=== PATIENT | male | born 1945 ===

== ENCOUNTER 2018-01-30 12:17 | Inpatient (IN) | payer OTHER, MEDICARE ==
[~2018-01-30] VITALS: Ht 175.3 cm; Wt 91.2 kg
[~2018-01-30 12:17] MED LIST changes: -AMLO-111 PO; -ASPI-1471 PO; -DIA5 PO; -DOCU240C84 PO; -LOR5/325 PO; -NAPR220C12 PO
[2018-01-30] MEDS ORDERED: DIPHTH/TETANUS/ACEL. PERTUSSIS IM ONE (12:35)
[2018-01-30] MEDS ORDERED: NS(*) 0.9% 1000 ML BAG 1,000 ML IV ONE (12:35)
[2018-01-30] MEDS ORDERED: MORPHINE 4 MG/ML SDV IVP ONE (12:35)
[2018-01-30] MEDS ORDERED: AMLO-96 PO (12:43)
--- NOTE | 2018-01-30 12:44 | ER Report ---
History and Physical Time Seen By MD: 12:35 Hx. of Stated Complaint: PT WAS WORKING AT THE [employer]. FELL OFF LADDER FROM APPROX 10 FT. COMPLAINING OF LUMBAR PAIN. PT HAS ABRASION TO LEFT ELBOW. PT ALSO HAVING PAIN TO LEFT LEG, WITH TINGLING. PT IN C COLLAR HPI/ROS CHIEF COMPLAINT: Fall from ladder HISTORY OF PRESENT ILLNESS: This is a 73-year-old male who presents to the emergency department via EMS for a fall from a ladder. Patient was at work today stepped off the ladder onto the roof of a building the foot slipped and he had a foot caught in the rung of the ladder slid down the ladder with atraumatic fall to the ground entangled in the ladder. No loss of consciousness however he does have C-spine tenderness lower thoracic and lumbar tenderness. No loss of bowel or bladder. Left hip and pelvic pain. REVIEW OF SYSTEMS: Constitutional: No fever, no chills. Eyes: No discharge. ENT: No sore throat. Cardiovascular: No chest pain, no palpitations. Respiratory: No cough, no shortness of breath. Gastrointestinal: No abdominal pain, no vomiting. Genitourinary: No hematuria. Musculoskeletal: As above. Skin: As above. Neurological: No headache. Allergies: Coded Allergies: No Known Drug Allergies (Verified , 08/06/15) Home Meds Reported Medications Naproxen Sodium (ALEVE) 220 Mg Capsule, 440 MG PO HS, CAPSULE 01/30/18 Aspirin (ASPIR 81) 81 Mg Tablet.dr, 81 MG PO HS, TAB 01/30/18 Amlodipine Besylate (AMLODIPINE BESYLATE) 5 Mg Tablet, 5 PO HS, TAB 01/30/18 Glucosa Lou 2KCL/Chondroitin Lou (Glucosamine & Chondroitin Cap) 1 Cap Capsule, 1 CAP PO DAILY, 0 Refills 05/10/10 Fish Oil/[place]-3 Fatty Acids (Fish Oil 1,200 Mg Softgel) 1 Cap Capsule, 1 CAP PO BID, 0 Refills 05/10/10 Levothyroxine Sodium (Levothyroxine Sodium) 50 Mcg Tablet, 50 MCG PO DAILY, 0 Refills 05/10/10 Benazepril Hcl 20 MG TAB (Benazepril Hcl 20 MG TAB) 20 Mg Tablet, 20 MG PO HS, 0 Refills 05/10/10 Past Medical/Surgical History The patient has a past medical and surgical history of hypertension, arthritis, toe fracture, wears glasses, hard of hearing, hearing aids, parotidectomy, carpal tunnel release. Reviewed Nurses Notes: Yes Constitutional Vital Sign - Last 24 Hours 01/30/18 01/30/18 01/30/18 01/30/18 12:30 12:34 12:45 12:47 Temp 98.3 Pulse 93 86 Resp 18 10 B/P (MAP) 132/92 132/92 (105) 127/87 (100) Pulse Ox 91 93 O2 Delivery Nasal Cannula 01/30/18 01/30/18 01/30/18 01/30/18 13:00 13:02 13:15 13:16 Pulse 87 Resp 22 B/P (MAP) 119/75 (90) 115/80 (92) Pulse Ox 92 O2 Flow Rate 2.0 01/30/18 01/30/18 01/30/18 01/30/18 13:17 13:30 14:00 14:05 Pulse 89 75 Resp 23 12 B/P (MAP) 112/92 (99) 132/80 (97) Pulse Ox 95 01/30/18 01/30/18 01/30/18 01/30/18 14:15 14:20 14:30 14:45 Pulse 73 ??? 68 Resp 24 7 B/P (MAP) 127/91 (103) ???/??? (1665) 131/91 (104) Pulse Ox 95 94 01/30/18 01/30/18 01/30/18 01/30/18 14:45 14:50 15:00 15:03 Pulse 73 73 Resp 18 16 B/P (MAP) 131/91 (104) 77/59 (65) 79/65 (70) Pulse Ox 95 01/30/18 01/30/18 01/30/18 01/30/18 15:06 15:10 15:15 15:20 Pulse ??? Resp 15 B/P (MAP) 100/64 (76) 118/60 (79) 116/70 (85) 126/70 (88) Pulse Ox 89 01/30/18 01/30/18 01/30/18 01/30/18 15:25 15:30 15:35 15:40 Pulse 61 Resp 11 B/P (MAP) 125/76 (92) 128/71 (90) 121/77 (92) 133/76 (95) Pulse Ox 95 01/30/18 01/30/18 01/30/18 01/30/18 15:45 15:50 15:55 16:00 Pulse 62 ??? Resp 7 11 B/P (MAP) 135/78 (97) 132/77 (95) 133/77 (95) 129/79 (96) Pulse Ox 97 95 01/30/18 01/30/18 01/30/18 01/30/18 16:05 16:10 16:15 16:20 Pulse 70 Resp 9 B/P (MAP) 130/78 (95) 133/82 (99) 141/83 (102) 138/80 (99) Pulse Ox 94 01/30/18 01/30/18 01/30/18 01/30/18 16:25 16:30 16:35 16:40 Pulse 69 Resp 9 B/P (MAP) 141/79 (99) 140/83 (102) 142/86 (104) 141/80 (100) Pulse Ox 95 01/30/18 01/30/18 01/30/18 01/30/18 16:45 16:50 16:55 17:00 B/P (MAP) 141/80 (100) 136/83 (100) 145/82 (103) 141/82 (101) 01/30/18 01/30/18 01/30/18 01/30/18 17:05 17:10 17:15 17:20 Pulse ??? Resp 14 B/P (MAP) 144/83 (103) 137/85 (102) 135/85 (102) 151/101 (118) Pulse Ox 95 01/30/18 01/30/18 17:25 17:40 B/P (MAP) 132/95 (107) 141/88 (105) Physical Exam General Appearance: The patient is alert, has no immediate need for airway protection and no signs of toxicity, arrives in c-collar. Eyes: Pupils equal and round no pallor or injection. Pupils 4 mm reactive. EOMs intact. No nystagmus. ENT, Mouth: Mucous membranes are moist. No blood. Respiratory: There are no retractions, lungs are clear to auscultation. Cardiovascular: Regular rate and rhythm, no murmurs, clicks or rubs. Gastrointestinal: Abdomen is soft and non tender, no masses, bowel sounds norm al. No retroperitoneal bruising. Neurological: Alert and oriented 4. Moving all tremors. Following all commands. No focal neuro deficits. There is 2-12 intact. GCS 15. Skin: Abrasion to the left elbow. Musculoskeletal and Extremities: C-spine tenderness with palpation, no crepitus or deformities. Pain to the lower thoracic and lumbar region no deformities or crepitus identified. No contusions. Pain to the left pelvis and femur and left knee, no hematomas, deformities or crepitus identified. are nontender, nonswollen and have full range of motion. DIFFERENTIAL DIAGNOSIS: After history and physical exam differential diagnosis was considered for cervical spine fracture, subdural bleed, compression fracture, retroperitoneal bleed. Medical Decision Making Data Points Result Diagram: 01/30/18 1217 01/30/18 1217 Laboratory Hematology Test 01/30/18 12:17 01/30/18 15:00 01/30/18 19:20 Red Blood Count 5.30 M/uL (4.00-5.60) Mean Corpuscular Volume 89.4 fL (80.0-96.0) Mean Corpuscular Hemoglobin 31.1 pg (26.0-33.0) Mean Corpuscular Hemoglobin Concent 34.8 g/dL (32.0-36.0) Red Cell Distribution Width 13.7 % (11.5-14.5) Mean Platelet Volume 8.8 fL (7.2-11.1) Neutrophils (%) (Auto) 65.1 % (39.4-72.5) Lymphocytes (%) (Auto) 23.2 % (17.6-49.6) Monocytes (%) (Auto) 8.8 % (4.1-12.4) Eosinophils (%) (Auto) 1.8 % (0.4-6.7) Basophils (%) (Auto) 1.1 % (0.3-1.4) Nucleated RBC Relative Count (auto) 0.0 /100WBC Neutrophils # (Auto) 4.5 K/uL (2.0-7.4) Lymphocytes # (Auto) 1.6 K/uL (1.3-3.6) Monocytes # (Auto) 0.6 K/uL (0.3-1.0) Eosinophils # (Auto) 0.1 K/uL (0.0-0.5) Basophils # (Auto) 0.1 K/uL (0.0-0.1) Nucleated RBC Absolute Count (auto) 0.00 K/uL Sodium Level 141 mmol/L (137-145) Potassium Level 3.6 mmol/L (3.5-5.0) Chloride Level 104 mmol/L (98-107) Carbon Dioxide Level 24 mmol/L (22-30) Blood Urea Nitrogen 21 mg/dl (9-21) Creatinine 1.10 mg/dl (0.66-1.25) Glomerular Filtration Rate Calc > 60.0 Random Glucose 126 mg/dl (75-110) Calcium Level 9.4 mg/dl (8.4-10.2) Total Bilirubin 1.0 mg/dl (0.2-1.3) Aspartate Amino Transf (AST/SGOT) 35 U/L (0-35) Alanine Aminotransferase (ALT/SGPT) 31 U/L (0-56) Alkaline Phosphatase 60 U/L (0-126) Total Protein 7.6 g/dl (6.3-8.2) Albumin 4.8 g/dl (3.5-5.0) Urine Color Yellow Urine Clarity Clear Urine pH 6.0 pH (4.8-9.5) Urine Specific [place] 1.010 Urine Protein Trace mg/dL (NEGATIVE) Urine Glucose (UA) Negative mg/dL (NEGATIVE) Urine Ketones Negative mg/dL (NEGATIVE) Urine Blood Negative (NEGATIVE) Urine Nitrite Negative (NEGATIVE) Urine Bilirubin Negative (NEGATIVE) Urine Urobilinogen 0.2 mg/dL (0.2-1.9) Urine Leukocyte Esterase Negative (NEGATIVE) Urine RBC <1 /HPF (0-2/HPF) Urine WBC 1 /HPF (0-5/HPF) Urine Squamous Epithelial Cells None /LPF (</=FEW) Urine Bacteria Negative /HPF (NONE-FEW) Urine Hyaline Casts Few /LPF (NONE-FEW) Urine Mucus Few /HPF (NONE-FEW) Troponin I < 0.012 ng/ml Chemistry Test 01/30/18 12:17 01/30/18 15:00 01/30/18 19:20 White Blood Count 6.9 k/uL (4.5-11.0) Red Blood Count 5.30 M/uL (4.00-5.60) Hemoglobin 16.5 g/dL (14.0-18.0) Hematocrit 47.4 % (42.0-52.0) Mean Corpuscular Volume 89.4 fL (80.0-96.0) Mean Corpuscular Hemoglobin 31.1 pg (26.0-33.0) Mean Corpuscular Hemoglobin Concent 34.8 g/dL (32.0-36.0) Red Cell Distribution Width 13.7 % (11.5-14.5) Platelet Count 300 K/uL (150-450) Mean Platelet Volume 8.8 fL (7.2-11.1) Neutrophils (%) (Auto) 65.1 % (39.4-72.5) Lymphocytes (%) (Auto) 23.2 % (17.6-49.6) Monocytes (%) (Auto) 8.8 % (4.1-12.4) Eosinophils (%) (Auto) 1.8 % (0.4-6.7) Basophils (%) (Auto) 1.1 % (0.3-1.4) Nucleated RBC Relative Count (auto) 0.0 /100WBC Neutrophils # (Auto) 4.5 K/uL (2.0-7.4) Lymphocytes # (Auto) 1.6 K/uL (1.3-3.6) Monocytes # (Auto) 0.6 K/uL (0.3-1.0) Eosinophils # (Auto) 0.1 K/uL (0.0-0.5) Basophils # (Auto) 0.1 K/uL (0.0-0.1) Nucleated RBC Absolute Count (auto) 0.00 K/uL Glomerular Filtration Rate Calc > 60.0 Calcium Level 9.4 mg/dl (8.4-10.2) Total Bilirubin 1.0 mg/dl (0.2-1.3) Aspartate Amino Transf (AST/SGOT) 35 U/L (0-35) Alanine Aminotransferase (ALT/SGPT) 31 U/L (0-56) Alkaline Phosphatase 60 U/L (0-126) Total Protein 7.6 g/dl (6.3-8.2) Albumin 4.8 g/dl (3.5-5.0) Urine Color Yellow Urine Clarity Clear Urine pH 6.0 pH (4.8-9.5) Urine Specific [place] 1.010 Urine Protein Trace mg/dL (NEGATIVE) Urine Glucose (UA) Negative mg/dL (NEGATIVE) Urine Ketones Negative mg/dL (NEGATIVE) Urine Blood Negative (NEGATIVE) Urine Nitrite Negative (NEGATIVE) Urine Bilirubin Negative (NEGATIVE) Urine Urobilinogen 0.2 mg/dL (0.2-1.9) Urine Leukocyte Esterase Negative (NEGATIVE) Urine RBC <1 /HPF (0-2/HPF) Urine WBC 1 /HPF (0-5/HPF) Urine Squamous Epithelial Cells None /LPF (</=FEW) Urine Bacteria Negative /HPF (NONE-FEW) Urine Hyaline Casts Few /LPF (NONE-FEW) Urine Mucus Few /HPF (NONE-FEW) Troponin I < 0.012 ng/ml Urinalysis Test 01/30/18 15:00 Urine Color Yellow Urine Clarity Clear Urine pH 6.0 pH (4.8-9.5) Urine Specific [place] 1.010 Urine Protein Trace mg/dL (NEGATIVE) Urine Glucose (UA) Negative mg/dL (NEGATIVE) Urine Ketones Negative mg/dL (NEGATIVE) Urine Blood Negative (NEGATIVE) Urine Nitrite Negative (NEGATIVE) Urine Bilirubin Negative (NEGATIVE) Urine Urobilinogen 0.2 mg/dL (0.2-1.9) Urine Leukocyte Esterase Negative (NEGATIVE) Urine RBC <1 /HPF (0-2/HPF) Urine WBC 1 /HPF (0-5/HPF) Urine Squamous Epithelial Cells None /LPF (</=FEW) Urine Bacteria Negative /HPF (NONE-FEW) Urine Hyaline Casts Few /LPF (NONE-FEW) Urine Mucus Few /HPF (NONE-FEW) EKG/Imaging EKG Interpretation 12 lead EKG: EKG 1507. Rhythm: Sinus bradycardia, ventricular rate 55 bpm. [place]: normal QRS: normal ST segments: No ST depression or elevation identified. No ectopy or blocks identified. 12 lead EKG: Repeat EKG Rhythm: Normal sinus rhythm, ventricular rate 63 bpm. [place]: normal QRS: normal ST segments: No ST depression or elevation identified. Imaging KNEE 4 VIEW LEFT, FEMUR LEFT Indication: fall, pain Comparison: None. Findings: Left knee radiograph: The distal femur, proximal tibia and fibula, and patella are intact. There is no effusion. Small ossified fragment in the knee joint are seen consistent with loose bodies. Left femur radiograph: There is no oblique lucency in the distal third of the femur, seen only on the AP image. Proximal portions of the femur demonstrate normal mineralization. IMPRESSION: 1. Possible subtle fracture distal third of the femur. 2. Negative left knee radiograph. Recommend CT left femur without contrast to evaluate for fracture. This was called by Dr. Hill to NICK MARTINS on 01/30/2018 2:05 PM Report Dictated By: Titus Hill at 01/30/2018 2:05 PM Report E-Signed By: Titus Hill at 01/30/2018 2:10 PM [email or web address] KNEE 4 VIEW LEFT, FEMUR LEFT Indication: fall, pain Comparison: None. Findings: Left knee radiograph: The distal femur, proximal tibia and fibula, and patella are intact. There is no effusion. Small ossified fragment in the knee joint are seen consistent with loose bodies. Left femur radiograph: There is no oblique lucency in the distal third of the femur, seen only on the AP image. Proximal portions of the femur demonstrate normal mineralization. IMPRESSION: 1. Possible subtle fracture distal third of the femur. 2. Negative left knee radiograph. Recommend CT left femur without contrast to evaluate for fracture. This was called by Dr. Hill to NICK MARTINS on 01/30/2018 2:05 PM Report Dictated By: Titus Hill at 01/30/2018 2:05 PM Report E-Signed By: Titus Hill at 01/30/2018 2:10 PM [facility] Head CT scan without contrast COMPARISONS: None ADDITIONAL PERTINENT HISTORY: Trauma TECHNIQUE: Multiple axial images were obtained from the skull base to the vertex without IV contrast. One of the following dose optimization techniques was utilized in the performance of this exam: Automated exposure control; adjustment of the mA and/or kV according to the patient's size; or use of an iterative reconstruction technique. Specific details can be referenced in the facility's radiology CT exam operational policy. FINDINGS: Midline shift: Negative Ventricles: Negative Brain parenchyma: Negative Extra-axial spaces: Negative Intracranial vasculature: Cavernous internal carotid artery calcifications. Otherwise negative Osseous structures: Negative Paranasal sinuses and mastoid air cells: Negative Surrounding soft tissues and orbits: Negative IMPRESSION: No evidence of acute intracranial pathology. Report Dictated By: Justin Wallace MD at 01/30/2018 2:24 PM Report E-Signed By: Justin Wallace MD at 01/30/2018 2:26 PM WSN:[id number] Location: [facility] [place] Patient: Dusty Fallon : 1945 Visit/Account:[id number] Date of Sevice: 01/30/2018 PELVIS Indication: fall from ladder, left hip and pelvic pain Comparison: None. Findings: Bones of the pelvis and the proximal right and left femur are intact. Right and left hip joint spaces demonstrate normal alignment. Soft tissues are unremarkable. There is a small ossification adjacent to the left ischial tuberosity, likely calcification at the insertion of the hamstring. IMPRESSION: No evidence of fracture or dislocation. Report Dictated By: Titus Hill at 01/30/2018 2:06 PM Report E-Signed By: Titus Hill at 01/30/2018 2:08 PM WSN:[id number] DDITIONAL PERTINENT HISTORY: Trauma TECHNIQUE: Multiple axial images were obtained from the skull base through the upper thoracic spine with coronal and sagittal reformatted images obtained without IV contrast. One of the following dose optimization techniques was utilized in the performance of this exam: Automated exposure control; adjustment of the mA and/or kV according to the patient's size; or use of an iterative reconstruction technique. Specific details can be referenced in the facility's radiology CT exam operational policy. FINDINGS. Postoperative changes: Patient status post previous anterior interbody fusion of C5-C7. Hardware is in good position without evidence of hardware fracture or loosening. Vertebral body heights and alignment: Negative. Vertebral bodies: Anteriorly and posteriorly directed osteophytes in the mid cervical spine. No bony fractures. Disc spaces: Solid bony fusion across the disc spaces at C5-C6 and C6-C7. Disc space narrowing at C4-C5. Cranial cervical junction: Negative. Cervical thoracic junction: Negative. Surrounding soft tissues: Negative. Lung apices: Negative. IMPRESSION: 1. Postoperative and spondylitic change as discussed above. 2. No acute appearing bony abnormalities. Report Dictated By: Justin Wallace MD at 01/30/2018 2:26 PM Report E-Signed By: Justin Wallace MD at 01/30/2018 2:30 PM WSN:[id number] TECHNIQUE: PELVIS W/O CONTRAST. Noncontrast axial CT imaging was performed to the pelvis with sagittal and coronal reformats. One of the following dose optimization techniques was utilized in the performance of this exam: Automated exposure control; adjustment of the mA and/or kV according to the patient's size; or use of an iterative reconstruction technique. Specific details can be referenced in the facility's radiology CT exam operational policy. COMPARISON: CT of the chest abdomen and pelvis performed earlier today. FINDINGS: The bladder is filled with contrast from the prior study. There is no contrast extravasation. There is a small diverticulum posteriorly on the right. There are a few colonic diverticula. Scattered aortic atherosclerosis is noted. A fracture of the left superior pubic ramus extends to the margin of the anterior column but does not extend intra-articularly. There is a comminuted minimally displaced fracture of the left inferior pubic ramus. A subtle fracture of the right inferior pubic ramus is nondisplaced. There is a fracture of the superior aspect of the left sacral wing. IMPRESSION: 1. Left and right pubic rami fractures as above. No discrete acetabular fracture. 2. Fracture of the left sacral ala at its superior margin. 3. Suspected nondisplaced fracture of the right inferior pubic ramus. 4. Additional incidental findings in the pelvis. Report Dictated By: Essence Magaña MD at 01/30/2018 6:03 PM Report E-Signed By: Essence Magaña MD at 01/30/2018 6:18 PM WSN:[id number] COMPARISON: Pain films from earlier today are reviewed. Technique: Axial CT images were obtained through the left femur. Reformatted coronal and sagittal images were reviewed. One of the following dose optimization techniques was utilized in the performance of this exam: Automated exposure control; adjustment of the mA and/or kV according to the patient's size; or use of an iterative reconstruction technique. Specific details can be referenced in the facility's radiology CT exam operational policy. FINDINGS: No acute fracture deformity involves the left femur. There are mild changes of left hip joint osteoarthritis. Knee joint osteophyte arthritis is seen on the edge of the [id number] with a small joint bodies which are also seen on today's plain films. No acute osseous abnormality of the left femur. With respect to the soft tissues, there is ill-defined soft tissue attenuation stranding within the subcutaneous tissues overlying the left hip greater trochanter. This is compatible with soft tissue bruising/ecchymosis. No well- defined hematoma. There is some subtle stranding about the left piriformis muscle may be related to an intramuscular hematoma in this location. Correlate with today's pelvic CT images. There are acute left superior and inferior rami fractures which appear minimally displaced. There is excreted contrast within the bladder. There are numerous sigmoid colon diverticula seen. Ill-defined area of hematoma formation is seen about the superior pubic ramus fracture. IMPRESSION: 1. No acute fracture deformity of the left femur. 2. Acute left superior and inferior pubic rami fractures with ill-defined hematoma formation about the superior pubic ramus fracture. 3. Soft tissue ecchymosis/bruising overlying the left greater trochanter. Report Dictated By: Garett Peterson at 01/30/2018 3:02 PM Report E-Signed By: Garett Peterson at 01/30/2018 3:13 PM WSN:[id number] C-SPINE W/O CONTRAST COMPARISONS: None. ADDITIONAL PERTINENT HISTORY: Trauma TECHNIQUE: Multiple axial images were obtained from the skull base through the upper thoracic spine with coronal and sagittal reformatted images obtained without IV contrast. One of the following dose optimization techniques was utilized in the performance of this exam: Automated exposure control; adjustment of the mA and/or kV according to the patient's size; or use of an iterative reconstruction technique. Specific details can be referenced in the facility's radiology CT exam operational policy. FINDINGS. Postoperative changes: Patient status post previous anterior interbody fusion of C5-C7. Hardware is in good position without evidence of hardware fracture or loosening. Vertebral body heights and alignment: Negative. Vertebral bodies: Anteriorly and posteriorly directed osteophytes in the mid cervical spine. No bony fractures. Disc spaces: Solid bony fusion across the disc spaces at C5-C6 and C6-C7. Disc space narrowing at C4-C5. Cranial cervical junction: Negative. Cervical thoracic junction: Negative. Surrounding soft tissues: Negative. Lung apices: Negative. IMPRESSION: 1. Postoperative and spondylitic change as discussed above. 2. No acute appearing bony abnormalities. Report Dictated By: Justin Wallace MD at 01/30/2018 2:26 PM Report E-Signed By: Justin Wallace MD at 01/30/2018 2:30 PM WSN:[id number] ADDENDUM #1 Addendum: In addition to the above-mentioned fractures, there is a subtle nondisplaced hairline fracture through the right inferior pubic ramus. No right superior pubic ramus fracture. Report Dictated By: Hugh Forte MD at 01/30/2018 4:41 PM Report E-Signed By: Hugh Forte MD at 01/30/2018 5:49 PM ORIGINAL REPORT EXAMINATION: CT chest, abdomen, and pelvis with IV contrast CT thoracic spine with IV contrast (reformatted) CT lumbar spine with IV contrast (reformatted). HISTORY: Trauma. Fall from ladder. TECHNIQUE: Axial CT images of the chest, abdomen, and pelvis were obtained wit h IV contrast, with coronal and sagittal 2D reconstructed images. Dedicated reconstructed images of the thoracic and lumbar spine were obtained from the source data, including thin-slice axial, sagittal, and coronal 2D reconstructed images. One of the following dose optimization techniques was utilized in the performance of this exam: Automated exposure control; adjustment of the mA and/or kV according to the patient's size; or use of an iterative reconstruction technique. Specific details can be referenced in the facility's radiology CT exam operational policy. Contrast: 75 mL of IV Isovue-370. COMPARISON: None. FINDINGS: CT Chest: Lungs and pleura: Mild parenchymal scarring or atelectasis in the lower lungs. No suspicious focal consolidation. No pleural effusion or pneumothorax. The central airways are patent. Mediastinum and darin: Negative. Heart, aorta, and great vessels: No evidence of traumatic aortic injury. Normal heart size. No pericardial effusion. Chest lymph node assessment: Negative. Bones: No discrete rib fracture is visualized. The sternum is intact. See thoracic spine findings below. Chest wall: Negative. Lower neck: Negative. CT Abdomen/pelvis: Liver: Negative. Gallbladder and bile ducts: Negative. Spleen: Negative. Pancreas: Negative. Adrenal glands: Negative. Kidneys: Small left renal cysts. The kidneys enhance normally. No retro peritoneal fluid or hemorrhage. Bowel and peritoneum: The small bowel and colon are normal in caliber. Scattered colonic diverticulosis. No free fluid or free intraperitoneal air. Pelvic structures: Negative. Lymph node assessment: Negative. Vessels: Mild vascular calcifications. Normal caliber abdominal aorta. Musculoskeletal: Exam is positive for pelvic fractures. There is a nondisp laced fracture along the lateral aspect of the left superior pubic ramus, and a mildly comminuted fracture of the left inferior pubic ramus. Small amount of soft tissue hemorrhage adjacent to the pubic rami fractures. There is a nondisplaced fracture along the superior left sacral ala, extending to the sacroiliac joint. Normal and symmetric alignment at both sacroiliac joints. Normal alignment at both hips. Proximal femurs are intact. See separate lumbar spine findings below. Body wall: Negative. CT thoracic spine: Mild thoracolumbar scoliosis. No evidence of acute fracture or subluxation along the thoracic spine. Vertebral body height is maintained. Mild degenerative endplate changes. Posterior elements are intact. Paraspinal soft tissues are unremarkable by CT. CT lumbar spine: The lumbar spine is negative for acute fracture or subluxation. Normal alignment. Vertebral body height is maintained. Mild degenerative changes along the lumbar spine. There is mild disc space narrowing at L4-L5, with facet arthropathy along the lower lumbar facet joints. Paraspinal soft tissues are unremarkable by CT. IMPRESSION: 1. Acute fractures of left superior and inferior pubic rami, with mild comminution of the inferior pu ic ramus fracture. Small amount of adjacent soft tissue hemorrhage. 2. Nondisplaced fracture along the superior left sacral ala. Normal and symmetric alignment along the sacroiliac joints.3. No other acute traumatic findings in the chest, abdomen, or pelvis. 4. No acute osseous findings on dedicated thoracic and lumbar spine reformatted images. Report Dictated By: Hugh Forte MD at 01/30/2018 2:57 PM Report E-Signed By: Hugh Forte MD at 01/30/2018 3:13 PM WSN:[id number] ADDENDUM #1 Addendum: In addition to the above-mentioned fractures, there is a subtle nondisplaced hairline fracture through the right inferior pubic ramus. No right superior pubic ramus fracture. Report Dictated By: Hugh Forte MD at 01/30/2018 4:41 PM Report E-Signed By: Hugh Forte MD at 01/30/2018 5:49 PM ORIGINAL REPORT EXAMINATION: CT chest, abdomen, and pelvis with IV contrast CT thoracic spine with IV contrast (reformatted) CT lumbar spine with IV contrast (reformatted). HISTORY: Trauma. Fall from ladder. TECHNIQUE: Axial CT images of the chest, abdomen, and pelvis were obtained with IV contrast, with coronal and sagittal 2D reconstructed images. Dedicated reconstructed images of the thoracic and lumbar spine were obtained from the source data, including thin-slice axial, sagittal, and coronal 2D reconstructed images. One of the following dose optimization techniques was utilized in the performance of this exam: Automated exposure control; adjustment of the mA and/or kV according to the patient's size; or use of an iterative reconstruction technique. Specific details can be referenced in the facility's radiology CT exam operational policy. Contrast: 75 mL of IV Isovue-370. COMPARISON: None. FINDINGS: CT Chest: Lungs and pleura: Mild parenchymal scarring or atelectasis in the lower lungs. No suspicious focal consolidation. No pleural effusion or pneumothorax. The central airways are patent. Mediastinum and darin: Negative. Heart, aorta, and great vessels: No evidence of traumatic aortic injury. Normal heart size. No pericardial effusion. Chest lymph node assessment: Negative. Bones: No discrete rib fracture is visualized. The sternum is intact. See thoracic spine findings below. Chest wall: Negative. Lower neck: Negative. CT Abdomen/pelvis: Liver: Negative. Gallbladder and bile ducts: Negative. Spleen: Negative. Pancreas: Negative. Adrenal glands: Negative. Kidneys: Small left renal cysts. The kidneys enhance normally. No retroperi toneal fluid or hemorrhage. Bowel and peritoneum: The small bowel and colon are normal in caliber. Scattered colonic diverticulosis. No free fluid or free intraperitoneal air. Pelvic structures: Negative. Lymph node assessment: Negative. Vessels: Mild vascular calcifications. Normal caliber abdominal aorta. Musculoskeletal: Exam is positive for pelvic fractures. There is a nondisplace d fracture along the lateral aspect of the left superior pubic ramus, and a mildly comminuted fracture of the left inferior pubic ramus. Small amount of soft tissue hemorrhage adjacent to the pubic rami fractures. There is a nondisplaced fracture along the superior left sacral ala, extending to the sacroiliac joint. Normal and symmetric alignment at both sacroiliac joints. Normal alignment at both hips. Proximal femurs are intact. See separate lumbar spine findings below. Body wall: Negative. CT thoracic spine: Mild thoracolumbar scoliosis. No evidence of acute fracture or subluxation along the thoracic spine. Vertebral body height is maintained. Mild degenerative endplate changes. Posterior elements are intact. Paraspinal soft tissues are unremarkable by CT. CT lumbar spine: The lumbar spine is negative for acute fracture or subluxation. Normal alignment. Vertebral body height is maintained. Mild degenerative changes along the lumbar spine. There is mild disc space narrowing at L4-L5, with facet arthropathy along the lower lumbar facet joints. Paraspinal soft tissues are unremarkable by CT. IMPRESSION: 1. Acute fractures of left superior and inferior pubic rami, with mild co mminution of the inferior pu ic ramus fracture. Small amount of adjacent soft tissue hemorrhage. 2. Nondisplaced fracture along the superior left sacral ala. Normal and symmetric alignment along the sacroiliac joints.3. No other acute traumatic findings in the chest, abdomen, or pelvis. 4. No acute osseous findings on dedicated thoracic and lumbar spine reformatted images. Report Dictated By: Hugh Forte MD at 01/30/2018 2:57 PM Report E-Signed By: Hugh Forte MD at 01/30/2018 3:13 PM WSN:[id number] ED Course/Re-evaluation Clinical Indication for ER IV: Hydration, IV Access ED Course The patient was admitted to room. A history and physical were obtained. Differential diagnoses were considered. Patient arrived in C-spine percussions. IV was started. A CBC, CMP were obtained. Lab studies unremarkable. UA was collected............. a chest abdomen pelvis CT............., pelvis unremarkable. Left femur x-ray questionable distal femur fracture, CT of the left femur.................. thoracic and lumbar CT......................... Patient was given 4 mg IV Zofran, 4 mg IV morphine, 50 g IV fentanyl. A 1 L normal saline bolus. 01/30/2018 2:15:41 pm received a call from radiology, there was a concern of a possible fracture in the distal femur, recommended a CT. I did inform the patient results, he is agreeable to the CT. 01/30/2018 3:13:11 pm the patient was standing at the side of bed urinating and became diaphoretic, pale heart rate and blood pressure dropped, the patient did make it back to the [place] where he laid down, the staff notified myself and Dr. Jefferson will reassess the patient, he was diaphoretic, at this time he was alert and responsive. I did remove the c-collar at this time as it was cleared by CT. The patient's was hypotensive repeat blood pressure at this time is 118/68, heart rate of 55. The heart rate did dip down into the 30s according to staff. Patient states that he has had some moments like this and has had carotid Dopplers which were negative. 01/30/2018 3:24:02 pm patient resting comfortably in the bed, alert and oriented, blood pressure 126/70, heart rate 58, 94%. 01/30/2018 6:36:[address] of the pelvis showing no discrete acetabular fracture, I reviewed this with the patient and his . I did explain to the patient that if he can ambulate then we would be able to send him home however if unable to ambulate then we will likely admit him to the hospital. The patient is getting some pain medication at this time and we will do a road test. 01/30/2018 7:17:30 pm I did speak with Dr. Washington regarding the patient's case, did inform him that the CT does not show an acetabular fracture, I did inform him however that the patient did have a another vagal episode I do believe secondary to the pain, I did speak with Dr. Graham Vela regarding the patient's case as well, Dr. Washington will admit and Dr. Graham Vela will manage the medicine side. I did inform the patient. Decision to Disposition Date: Jan 30, 2018 Decision to Disposition Time: 19:24 Depart Departure Latest Vital Signs Vital Signs Date Time Temp Pulse Resp B/P (MAP) Pulse Ox O2 Delivery O2 Flow Rate FiO2 01/30/18 17:40 141/88 (105) 01/30/18 17:10 ??? 14 95 01/30/18 13:16 2.0 01/30/18 12:30 98.3 Nasal Cannula Impression: Primary Impression: Fracture of left inferior pubic ramus Additional Impressions: Fracture of left superior pubic ramus Sacral fracture, closed Condition: Improved Disposition: Admitted from ER Referrals: AMANDEEP BRUCE DO (PCP) Problem Qualifiers Primary Impression: Fracture of left inferior pubic ramus Encounter type: initial encounter Fracture type: closed Qualified Codes: S32.592A - Other specified fracture of left pubis, initial encounter for closed fracture Additional Impressions: Fracture of left superior pubic ramus Encounter type: initial encounter Fracture type: closed Qualified Codes: S32.512A - Fracture of superior rim of left pubis, initial encounter for closed fracture Sacral fracture, closed Encounter type: initial encounter Zone of sacrum fracture: unspecified portion of sacrum Qualified Codes: S32.10XA - Unspecified fracture of sacrum, initial encounter for closed fracture NICK MARTINS IMMUNOLOGIST-BC Jan 30, 2018 12:44
[2018-01-30 12:47] LABS: PLATELET COUNT, AUTOMATED 300 K/uL (150-450)
[2018-01-30] MEDS: ONDANSETRON 4 MG/2 ML VIAL IVP ONE ×2 (12:47→12:48)
[2018-01-30] MEDS ORDERED: IOPAMIDOL 76% 75 ML INFUS BTL 75 ML ONE (12:54)
--- NOTE | 2018-01-30 14:11 | RADIOLOGY IMAGING REPORT ---
FACILITY: [facility] - [place] PATIENT NAME: Dusty Fallon : 1945 MR: [id number] V: [id number] EXAM DATE: ORDERING PHYSICIAN: NICK MARTINS TECHNOLOGIST: Location: [facility] - [place] Patient: Dusty Fallon : 1945 Visit/Account:[id number] Date of Sevice: 01/30/2018 PELVIS Indication: fall from ladder, left hip and pelvic pain Comparison: None. Findings: Bones of the pelvis and the proximal right and left femur are intact. Right and left hip j oint spaces demonstrate normal alignment. Soft tissues are unremarkable. There is a small ossificat ion adjacent to the left ischial tuberosity, likely calcification at the insertion of the hamstring. IMPRESSION: No evidence of fracture or dislocation. Report Dictated By: Titus Hill at 01/30/2018 2:06 PM Report E-Signed By: Titus Hill at 01/30/2018 2:08 PM JASMYNN:[email or web address]
[2018-01-30] MEDS ORDERED: LIDOCAINE 2% VISC SLN 15ML UDC PO ONE (14:15)
[2018-01-30] MEDS ORDERED: fentaNYL CITR 100 MCG/2 ML AMP IVP ONE ×2 (14:15→18:10)
--- NOTE | 2018-01-30 14:15 | RADIOLOGY IMAGING REPORT ---
FAC[place] [facility] [place]IENT NAME: Dusty Fallon : 1945 MR: [id number] V: [id number] EXAM DATE: ORDERING PHYSICIAN: NICK MARTINS TECHNOLOGIST: Location: [facility] [place] Patient: Dusty Fallon : 1945 Visit/Account:[id number] Date of Sevice: 01/30/2018 KNEE 4 VIEW LEFT, FEMUR LEFT Indication: fall, pain Comparison: None. Findings: Left knee radiograph: The distal femur, proximal tibia and fibula, and patella are intact. There is no effusion. Small ossified fragment in the knee joint are seen consistent with loose bodies. Left femur radiograph: There is no oblique lucency in the distal third of the femur, seen only on the AP image. Proximal portions of the femur demonstrate normal mineralization. IMPRESSION: 1. Possible subtle fracture distal third of the femur. 2. Negative left knee radiograph. Recommend CT left femur without contrast to evaluate for fracture. This was called by Dr. Hill to NICK MARTINS on 01/30/2018 2:05 PM Report Dictated By: Titus Hill at 01/30/2018 2:05 PM Report E-Signed By: Titus Hill at 01/30/2018 2:10 PM WSN:[email or web address]
--- NOTE | 2018-01-30 14:15 | RADIOLOGY IMAGING REPORT ---
FACILITY: [facility] - [place] PATIENT NAME: Dusty Fallon : 1945 MR: [id number] V: [id number] EXAM DATE: ORDERING PHYSICIAN: NICK MARTINS TECHNOLOGIST: Location: [facility] [place] Patient: Dusty Fallon : 1945 Visit/Account:[id number] Date of Sevice: 01/30/2018 KNEE 4 VIEW LEFT, FEMUR LEFT Indication: fall, pain Comparison: None. Findings: Left knee radiograph: The distal femur, proximal tibia and fibula, and patella are intact. There is no effusion. Small ossified fragment in the knee joint are seen consistent with loose bodies. Left femur radiograph: There is no oblique lucency in the distal third of the femur, seen only on the AP image. Proximal portions of the femur demonstrate normal mineralization. IMPRESSION: 1. Possible subtle fracture distal third of the femur. 2. Negative left knee radiograph. Recommend CT left femur without contrast to evaluate for fracture. This was called by Dr. Hill to NICK MARTINS on 01/30/2018 2:05 PM Report Dictated By: Titus Hill at 01/30/2018 2:05 PM Report E-Signed By: Titus Hill at 01/30/2018 2:10 PM WSN:[email or web address]
--- NOTE | 2018-01-30 14:29 | RADIOLOGY IMAGING REPORT ---
FACILITY: [facility] PATIENT NAME: Dusty Fallon : 1945 MR: [id number] V: [id number] EXAM DATE: ORDERING PHYSICIAN: NICK MARTINS TECHNOLOGIST: Location: [facility] Patient: Dusty Fallon : 1945 Visit/Account:[id number] Date of Sevice: 01/30/[address] scan without contrast COMPARISONS: None ADDITIONAL PERTINENT HISTORY: Trauma TECHNIQUE: Multiple axial images were obtained from the skull base to the vertex without IV contrast . One of the following dose optimization techniques was utilized in the performance of this exam: Aut omated exposure control; adjustment of the mA and/or kV according to the patient's size; or use of an iterative reconstruction technique. Specific details can be referenced in the facility's radiology CT exam operational policy. FINDINGS: Midline shift: Negative Ventricles: Negative Brain parenchyma: Negative Extra-axial spaces: Negative Intracranial vasculature: Cavernous internal carotid artery calcifications. Otherwise negative Osseous structures: Negative Paranasal sinuses and mastoid air cells: Negative Surrounding soft tissues and orbits: Negative IMPRESSION: No evidence of acute intracranial pathology. Report Dictated By: Justin Wallace MD at 01/30/2018 2:24 PM Report E-Signed By: Justin Wallace MD at 01/30/2018 2:26 PM WSN:[id number]
--- NOTE | 2018-01-30 14:34 | RADIOLOGY IMAGING REPORT ---
[place] [facility] [place] Dusty Fallon : 1945 MR: [id number] V: [id number] EXAM DATE: ORDERING PHYSICIAN: NICK MARTINS TECHNOLOGIST: Location: [facility] - [place] Patient: Dusty Fallon : 1945 Visit/Account:[id number] Date of Sevice: 01/30/2018 C-SPINE W/O CONTRAST COMPARISONS: None. ADDITIONAL PERTINENT HISTORY: Trauma TECHNIQUE: Multiple axial images were obtained from the skull base through the upper thoracic spine with coronal and sagittal reformatted images obtained without IV contrast. One of the following dose optimization techniques was utilized in the performance of this exam: Automated exposure control; adj ustment of the mA and/or kV according to the patient's size; or use of an iterative reconstruction t echnique. Specific details can be referenced in the facility's radiology CT exam operational policy. FINDINGS. Postoperative changes: Patient status post previous anterior interbody fusion of C5-C7. Hardware is in good position without evidence of hardware fracture or loosening. Vertebral body heights and alignment: Negative. Vertebral bodies: Anteriorly and posteriorly directed osteophytes in the mid cervical spine. No bony fractures. Disc spaces: Solid bony fusion across the disc spaces at C5-C6 and C6-C7. Disc space narrowing at C4 -C5. Cranial cervical junction: Negative. Cervical thoracic junction: Negative. Surrounding soft tissues: Negative. Lung apices: Negative. IMPRESSION: 1. Postoperative and spondylitic change as discussed above. 2. No acute appearing bony abnormalities. Report Dictated By: Justin Wallace MD at 01/30/2018 2:26 PM Report E-Signed By: Justin Wallace MD at 01/30/2018 2:30 PM WSN:[id number]
--- NOTE | 2018-01-30 15:17 | RADIOLOGY IMAGING REPORT ---
FACILITY: [facility] PATIENT NAME: Dusty Fallon : 1945 MR: [id number] V: [id number] EXAM DATE: ORDERING PHYSICIAN: NICK MARTINS TECHNOLOGIST: Location: [facility] Patient: Dusty Fallon : 1945 Visit/Account:[id number] Date of Sevice: 01/30/2018 ADDENDUM #1 Addendum: In addition to the above-mentioned fractures, there is a subtle nondisplaced hairline fract ure through the right inferior pubic ramus. No right superior pubic ramus fracture. Report Dictated By: Hugh Forte MD at 01/30/2018 4:41 PM Report E-Signed By: Hugh Forte MD at 01/30/2018 5:49 PM ORIGINAL REPORT EXAMINATION: CT chest, abdomen, and pelvis with IV contrast CT thoracic spine with IV contrast (reformatted) CT lumbar spine with IV contrast (reformatted). HISTORY: Trauma. Fall from ladder. TECHNIQUE: Axial CT images of the chest, abdomen, and pelvis were obtained with IV contrast, with c oronal and sagittal 2D reconstructed images. Dedicated reconstructed images of the thoracic and lumba r spine were obtained from the source data, including thin-slice axial, sagittal, and coronal 2D pascual nstructed images. One of the following dose optimization techniques was utilized in the performance of this exam: Autom ated exposure control; adjustment of the mA and/or kV according to the patient's size; or use of an i terative reconstruction technique. Specific details can be referenced in the facility's radiology C T exam operational policy. Contrast: 75 mL of IV Isovue-370. COMPARISON: None. FINDINGS: CT Chest: Lungs and pleura: Mild parenchymal scarring or atelectasis in the lower lungs. No suspicious focal c onsolidation. No pleural effusion or pneumothorax. The central airways are patent. Mediastinum and darin: Negative. Heart, aorta, and great vessels: No evidence of traumatic aortic injury. Normal heart size. No peric ardial effusion. Chest lymph node assessment: Negative. Bones: No discrete rib fracture is visualized. The sternum is intact. See thoracic spine findings be low. Chest wall: Negative. Lower neck: Negative. CT Abdomen/pelvis: Liver: Negative. Gallbladder and bile ducts: Negative. Spleen: Negative. Pancreas: Negative. Adrenal glands: Negative. Kidneys: Small left renal cysts. The kidneys enhance normally. No retroperitoneal fluid or hemorrhag e. Bowel and peritoneum: The small bowel and colon are normal in caliber. Scattered colonic diverticulo sis. No free fluid or free intraperitoneal air. Pelvic structures: Negative. Lymph node assessment: Negative. Vessels: Mild vascular calcifications. Normal caliber abdominal aorta. Musculoskeletal: Exam is positive for pelvic fractures. There is a nondisplaced fracture along the lateral aspect of the left superior pubic ramus, and a mildly comminuted fracture of the left inferio r pubic ramus. Small amount of soft tissue hemorrhage adjacent to the pubic rami fractures. There is a nondisplaced fracture along the superior left sacral ala, extending to the sacroiliac joint. Normal and symmetric alignment at both sacroiliac joints. Normal alignment at both hips. Proximal femurs ar e intact. See separate lumbar spine findings below. Body wall: Negative. CT thoracic spine: Mild thoracolumbar scoliosis. No evidence of acute fracture or subluxation along the thoracic spine. Vertebral body height is maintained. Mild degenerative endplate changes. Posterior elements are intac t. Paraspinal soft tissues are unremarkable by CT. CT lumbar spine: The lumbar spine is negative for acute fracture or subluxation. Normal alignment. Vertebral body heig ht is maintained. Mild degenerative changes along the lumbar spine. There is mild disc space narrowing at L4-L5, with f acet arthropathy along the lower lumbar facet joints. Paraspinal soft tissues are unremarkable by CT. IMPRESSION: 1. Acute fractures of left superior and inferior pubic rami, with mild comminution of the inferior pu ic ramus fracture. Small amount of adjacent soft tissue hemorrhage. 2. Nondisplaced fracture along the superior left sacral ala. Normal and symmetric alignment along the sacroiliac joints.3. No other acute traumatic findings in the chest, abdomen, or pelvis. 4. No acute osseous findings on dedicated thoracic and lumbar spine reformatted images. Report Dictated By: Hugh Forte MD at 01/30/2018 2:57 PM Report E-Signed By: Hugh Forte MD at 01/30/2018 3:13 PM WSN:[id number]
--- NOTE | 2018-01-30 15:18 | RADIOLOGY IMAGING REPORT ---
FACILITY: [facility] - [place] PATIENT NAME: Dusty Fallon : 1945 MR: [id number] V: [id number] EXAM DATE: ORDERING PHYSICIAN: NICK MARTINS TECHNOLOGIST: Location: [facility] - [place] Patient: Dusty Fallon : 1945 Visit/Account:[id number] Date of Sevice: 01/30/2018 ADDENDUM #1 Addendum: In addition to the above-mentioned fractures, there is a subtle nondisplaced hairline fract ure through the right inferior pubic ramus. No right superior pubic ramus fracture. Report Dictated By: Hugh Forte MD at 01/30/2018 4:41 PM Report E-Signed By: Hugh Forte MD at 01/30/2018 5:49 PM ORIGINAL REPORT EXAMINATION: CT chest, abdomen, and pelvis with IV contrast CT thoracic spine with IV contrast (reformatted) CT lumbar spine with IV contrast (reformatted). HISTORY: Trauma. Fall from ladder. TECHNIQUE: Axial CT images of the chest, abdomen, and pelvis were obtained with IV contrast, with c oronal and sagittal 2D reconstructed images. Dedicated reconstructed images of the thoracic and lumba r spine were obtained from the source data, including thin-slice axial, sagittal, and coronal 2D pascual nstructed images. One of the following dose optimization techniques was utilized in the performance of this exam: Autom ated exposure control; adjustment of the mA and/or kV according to the patient's size; or use of an i terative reconstruction technique. Specific details can be referenced in the facility's radiology C T exam operational policy. Contrast: 75 mL of IV Isovue-370. COMPARISON: None. FINDINGS: CT Chest: Lungs and pleura: Mild parenchymal scarring or atelectasis in the lower lungs. No suspicious focal c onsolidation. No pleural effusion or pneumothorax. The central airways are patent. Mediastinum and darin: Negative. Heart, aorta, and great vessels: No evidence of traumatic aortic injury. Normal heart size. No peric ardial effusion. Chest lymph node assessment: Negative. Bones: No discrete rib fracture is visualized. The sternum is intact. See thoracic spine findings be low. Chest wall: Negative. Lower neck: Negative. CT Abdomen/pelvis: Liver: Negative. Gallbladder and bile ducts: Negative. Spleen: Negative. Pancreas: Negative. Adrenal glands: Negative. Kidneys: Small left renal cysts. The kidneys enhance normally. No retroperitoneal fluid or hemorrhag e. Bowel and peritoneum: The small bowel and colon are normal in caliber. Scattered colonic diverticulo sis. No free fluid or free intraperitoneal air. Pelvic structures: Negative. Lymph node assessment: Negative. Vessels: Mild vascular calcifications. Normal caliber abdominal aorta. Musculoskeletal: Exam is positive for pelvic fractures. There is a nondisplaced fracture along the lateral aspect of the left superior pubic ramus, and a mildly comminuted fracture of the left inferio r pubic ramus. Small amount of soft tissue hemorrhage adjacent to the pubic rami fractures. There is a nondisplaced fracture along the superior left sacral ala, extending to the sacroiliac joint. Normal and symmetric alignment at both sacroiliac joints. Normal alignment at both hips. Proximal femurs ar e intact. See separate lumbar spine findings below. Body wall: Negative. CT thoracic spine: Mild thoracolumbar scoliosis. No evidence of acute fracture or subluxation along the thoracic spine. Vertebral body height is maintained. Mild degenerative endplate changes. Posterior elements are intac t. Paraspinal soft tissues are unremarkable by CT. CT lumbar spine: The lumbar spine is negative for acute fracture or subluxation. Normal alignment. Vertebral body heig ht is maintained. Mild degenerative changes along the lumbar spine. There is mild disc space narrowing at L4-L5, with f acet arthropathy along the lower lumbar facet joints. Paraspinal soft tissues are unremarkable by CT. IMPRESSION: 1. Acute fractures of left superior and inferior pubic rami, with mild comminution of the inferior pu ic ramus fracture. Small amount of adjacent soft tissue hemorrhage. 2. Nondisplaced fracture along the superior left sacral ala. Normal and symmetric alignment along the sacroiliac joints.3. No other acute traumatic findings in the chest, abdomen, or pelvis. 4. No acute osseous findings on dedicated thoracic and lumbar spine reformatted images. Report Dictated By: Hugh Forte MD at 01/30/2018 2:57 PM Report E-Signed By: Hugh Forte MD at 01/30/2018 3:13 PM WSN:[id number]
--- NOTE | 2018-01-30 15:19 | RADIOLOGY IMAGING REPORT ---
FACILITY: [facility] - [place] PATIENT NAME: Dusty Fallon : 1945 MR: [id number] V: [id number] EXAM DATE: ORDERING PHYSICIAN: NICK MARTINS TECHNOLOGIST: Location: [facility] Patient: Dusty Fallon : 1945 Visit/Account:[id number] Date of Sevice: 01/30/2018 CT of the left femur INDICATION: Fall. Pain. Evaluate for femur fracture. COMPARISON: Pain films from earlier today are reviewed. Technique: Axial CT images were obtained through the left femur. Reformatted coronal and sagittal nino ges were reviewed. One of the following dose optimization techniques was utilized in the performance of this exam: Autom ated exposure control; adjustment of the mA and/or kV according to the patient's size; or use of an i terative reconstruction technique. Specific details can be referenced in the facility's radiology C T exam operational policy. FINDINGS: No acute fracture deformity involves the left femur. There are mild changes of left hip joint osteoar thritis. Knee joint osteophyte arthritis is seen on the edge of the [id number] with a small joint bodies which are also seen on today's plain films. No acute osseous abnormality of the left femur. Wi th respect to the soft tissues, there is ill-defined soft tissue attenuation stranding within the sub cutaneous tissues overlying the left hip greater trochanter. This is compatible with soft tissue brui sing/ecchymosis. No well-defined hematoma. There is some subtle stranding about the left piriformis m uscle may be related to an intramuscular hematoma in this location. Correlate with today's pelvic CT images. There are acute left superior and inferior rami fractures which appear minimally displaced. There is excreted contrast within the bladder. There are numerous sigmoid colon diverticula seen. Ill -defined area of hematoma formation is seen about the superior pubic ramus fracture. IMPRESSION: 1. No acute fracture deformity of the left femur. 2. Acute left superior and inferior pubic rami fractures with ill-defined hematoma formation about th e superior pubic ramus fracture. 3. Soft tissue ecchymosis/bruising overlying the left greater trochanter. Report Dictated By: Garett Peterson at 01/30/2018 3:02 PM Report E-Signed By: Garett Peterson at 01/30/2018 3:13 PM WSN:[id number]
--- NOTE | 2018-01-30 18:21 | RADIOLOGY IMAGING REPORT ---
FACILITY: [facility] - [place] PATIENT NAME: Dusty Fallon : 1945 MR: [id number] V: [id number] EXAM DATE: ORDERING PHYSICIAN: NICK MARTINS TECHNOLOGIST: Location: [facility] Patient: Dusty Fallon : 1945 Visit/Account:[id number] Date of Sevice: 01/30/2018 INDICATION: acetabular fx?. Trauma. DATE: 01/30/2018 6:03 PM. TECHNIQUE: PELVIS W/O CONTRAST. Noncontrast axial CT imaging was performed to the pelvis with sagitta l and coronal reformats. One of the following dose optimization techniques was utilized in the perfor pedro luis of this exam: Automated exposure control; adjustment of the mA and/or kV according to the patie nt's size; or use of an iterative reconstruction technique. Specific details can be referenced in doctors hospital's radiology CT exam operational policy. COMPARISON: CT of the chest abdomen and pelvis performed earlier today. FINDINGS: The bladder is filled with contrast from the prior study. There is no contrast extravasation. There i s a small diverticulum posteriorly on the right. There are a few colonic diverticula. Scattered aorti c atherosclerosis is noted. A fracture of the left superior pubic ramus extends to the margin of the anterior column but does not extend intra-articularly. There is a comminuted minimally displaced fracture of the left inferior pu bic ramus. A subtle fracture of the right inferior pubic ramus is nondisplaced. There is a fracture o f the superior aspect of the left sacral wing. IMPRESSION: 1. Left and right pubic rami fractures as above. No discrete acetabular fracture. 2. Fracture of the left sacral ala at its superior margin. 3. Suspected nondisplaced fracture of the right inferior pubic ramus. 4. Additional incidental findings in the pelvis. Report Dictated By: Essence Magaña MD at 01/30/2018 6:03 PM Report E-Signed By: Essence Magaña MD at 01/30/2018 6:18 PM WSN:[id number]
[2018-01-30] MEDS ORDERED: ONDANSETRON 4 MG ODT TABDP SL PRN (19:40)
[2018-01-30] MEDS ORDERED: ASPI-1471 PO (19:56)
[2018-01-30 19:57] VITALS: BP 145/81
[2018-01-30] MEDS ORDERED: NAPR220C12 PO (19:57)
--- NOTE | 2018-01-30 19:59 | EKG ---
FACILITY: [facility] PATIENT NAME: TIKI MIRELES : [id number] MR: [id number] V: [id number] EXAM DATE: ORDERING PHYSICIAN: NICK MARTINS TECHNOLOGIST: TREVA Test Reason : FALL Blood Pressure : / mmHG Vent. Rate : 063 BPM Atrial Rate : 063 BPM P-R Int : 150 ms QRS Dur : 082 ms QT Int : 434 ms P-R-T Axes : 055 026 033 degrees QTc Int : 444 ms Sinus rhythm No acute appearing findings When compared with ECG of 30-JAN-2018 15:07, No significant change was found Confirmed by LUIGI GARNER ([id number]) on 01/30/2018 8:02:40 PM Referred By: Confirmed By:LUIGI GARNER
--- NOTE | 2018-01-30 21:31 | Hospitalist Consultation ---
History of Present Illness Requesting Physician Dr. Washington Reason for Consult Medical co-management Chief Complaint "Herndon like might pass out" History of Present Illness 73yo male with PMHx significant for HTN and hypothyroidism. He sustained pelvic and sacral fractures in fall from ladder/roof while at work today at [employer]. He did not lose consciousness in the fall. Very soon after his fall he was aided to his feet by a few co-workers. At that time, he experienced severe pain in his left hip/groin area. Subsequently, he felt nauseated (no emesis) and passed out. He did not have any CP/palpitations/dyspnea. He had similar symptoms occur while in the ER when he was trying to mobilize. He was noted to be significantly bradycardic during these episodes as well. He has no history of cardiac disease. His EKG was rather unremarkable and his troponin was normal. History Problems: (1) HTN (hypertension) Status: Chronic (2) History of fusion of cervical spine Status: Resolved (3) Hypothyroidism Status: Chronic Home Meds Reported Medications Naproxen Sodium (ALEVE) 220 Mg Capsule, 440 MG PO HS, CAPSULE 01/30/18 Aspirin (ASPIR 81) 81 Mg Tablet.dr, 81 MG PO HS, TAB 01/30/18 Amlodipine Besylate (AMLODIPINE BESYLATE) 5 Mg Tablet, 10 MG PO HS, TAB 01/30/18 Glucosa Lou 2KCL/Chondroitin Lou (Glucosamine & Chondroitin Cap) 1 Cap Capsule, 1 CAP PO DAILY, 0 Refills 05/10/10 Fish Oil/[place]-3 Fatty Acids (Fish Oil 1,200 Mg Softgel) 1 Cap Capsule, 1 CAP PO BID, 0 Refills 05/10/10 Levothyroxine Sodium (Levothyroxine Sodium) 50 Mcg Tablet, 88 MCG PO DAILY, 0 Refills 05/10/10 Benazepril Hcl 20 MG TAB (Benazepril Hcl 20 MG TAB) 20 Mg Tablet, 20 MG PO HS, 0 Refills 05/10/10 Allergies: Coded Allergies: No Known Drug Allergies (Verified , 08/06/15) Patient History: Lung cancer FATHER Hx Smoking: No Caffeine Intake: Coffee Caffeine/Cups Per Day: 2 Hx Alcohol Use: Yes Hx Substance Use Disorder: No Review of Systems Constitutional: No Fever, No Chills Neurological: Syncope Eyes: No Vision Change, No Loss of Vision Cardiovascular: No Chest Pain, No Palpitations Respiratory: No Shortness of Breath Gastrointestinal: Nausea; No Vomiting Genitourinary: No Dysuria, No Hematuria Musculoskeletal: Pain, Impaired Mobility Exam Vital Signs Vital Signs Date Time Temp Pulse Resp B/P (MAP) Pulse Ox O2 Delivery O2 Flow Rate FiO2 01/30/18 19:57 98.7 72 12 145/81 (102) 99 Nasal Cannula 2.0 General Appearance: Alert, Awake Neuro: No Gross deficits Eyes: PERRLA Neck: No Masses Cardiovascular: Regular Rate and Rhythm, No Edema, No JVD Respiratory: Clear to Auscultation Chest: No Tenderness GI: Other (Soft/BS present) Extremities: Warm, Pulses (normal), Perfused Psych: Alert & Oriented X3 Medical Decision Making Data Points Result Diagram: 01/30/18 1217 01/30/18 1217 Item Value Date Time Troponin I < 0.012 ng/ml 01/30/18 1920 Albumin 4.8 g/dl 01/30/18 1217 Total Protein 7.6 g/dl 01/30/18 1217 Alkaline Phosphatase 60 U/L 01/30/18 1217 Alanine Aminotransferase (ALT/SGPT) 31 U/L 01/30/18 1217 Aspartate Amino Transf (AST/SGOT) 35 U/L 01/30/18 1217 Total Bilirubin 1.0 mg/dl 01/30/18 1217 Calcium Level 9.4 mg/dl 01/30/18 1217 Urine Color Yellow 01/30/18 1500 Urine Clarity Clear 01/30/18 1500 Urine pH 6.0 pH 01/30/18 1500 Urine Specific [place] 1.010 01/30/18 1500 Urine Protein Trace mg/dL 01/30/18 1500 Urine Glucose (UA) Negative mg/dL 01/30/18 1500 Urine Ketones Negative mg/dL 01/30/18 1500 Urine Blood Negative 01/30/18 1500 Urine Nitrite Negative 01/30/18 1500 Urine Bilirubin Negative 01/30/18 1500 Urine Urobilinogen 0.2 mg/dL 01/30/18 1500 Urine Leukocyte Esterase Negative 01/30/18 1500 Urine RBC <1 /HPF 01/30/18 1500 Urine WBC 1 /HPF 01/30/18 1500 Urine Squamous Epithelial Cells None /LPF 01/30/18 1500 Urine Bacteria Negative /HPF 01/30/18 1500 Urine Hyaline Casts Few /LPF 01/30/18 1500 Urine Mucus Few /HPF 01/30/18 1500 EKG / Imaging EKG Interpretation PATIENT NAME: TIKI MIRELES : [id number] MR: [id number] V: [id number] EXAM DATE: ORDERING PHYSICIAN: NICK MARTINS TECHNOLOGIST: TREVA Test Reason : FALL Blood Pressure : / mmHG Vent. Rate : 063 BPM Atrial Rate : 063 BPM P-R Int : 150 ms QRS Dur : 082 ms QT Int : 434 ms P-R-T Axes : 055 026 033 degrees QTc Int : 444 ms Sinus rhythm No acute appearing findings When compared with ECG of 30-JAN-2018 15:07, No significant change was found Confirmed by LUIGI GARNER ([id number]) on 01/30/2018 8:02:40 PM Referred By: Confirmed By:LUIGI GARNER Assessment and Plan Problems: (1) Syncope Status: Acute Assessment & Plan: The syncopal episodes certainly sound like they were vasovagal episodes elicited by the severe pain he was experiencing at the time. Will place him on telemetry to monitor for any potential dysrhythmia. (2) Hypothyroidism Status: Chronic Assessment & Plan: Will continue replacement therapy with L-thyroxine. (3) HTN (hypertension) Status: Chronic Assessment & Plan: Will monitor BPs and resume his amlodipine and benazepril as needed. Venous Thromboembolism Antithrombotics Is Pt On Any Antithrombotics?: No (Recent trauma) Exam Sepsis Risk: No Definite Risk LUIGI GARNER MD Jan 30, 2018 21:31
[2018-01-31] VITALS (7 sets, daily range): BP systolic 109–148; BP diastolic 68–92; Ht 175.3 cm; Wt 91.2 kg
[2018-01-31] MEDS: LEVOTHYROXINE SOD 0.088 MG TAB PO SCH (05:20)
[2018-01-31] MEDS: BENAZEPRIL HCL 20 MG TAB PO SCH (09:00)
[2018-01-31] MEDS: amLODIPine BESYL(*) 5 MG TAB PO SCH (09:00)
[2018-01-31] MEDS: LIDOCAINE 5% PATCH TP SCH (12:22)
--- NOTE | 2018-01-31 15:45 | Hospitalist Progress Note ---
Subjective Progress Notes Subjective 73M admitted for pelvic Fx, noted to have syncope and presyncope after injury. Patient Complains of: Neurological: Syncope (pre) Cardiovascular: No: Chest Pain, Palpitations Respiratory: No: Cough, Congestion Gastrointestinal: No Nausea, No Vomiting Physical Exam Vital Signs Date Time Temp Pulse Resp B/P (MAP) Pulse Ox O2 Delivery O2 Flow Rate FiO2 01/31/18 15:12 88 135/92 (106) 95 Room Air 01/31/18 15:06 98.1 16 01/31/18 02:38 2.0 Intake and Output 01/31/18 06:59 Intake Total 2350 ml Output Total 575 ml Balance 1775 ml Intake Oral 1350 ml IV Total 1000 ml Output Urine Total 575 ml # Voids 2 General Appearance: Alert, Awake, No Acute Distress Neuro: No Gross deficits Eyes: PERRLA ENT: Normal Neck: No Masses Cardiovascular: Normal Rhythm & Peripheral Pulses Respiratory: No Respiratory Distress Chest: No Masses GI: Soft and Non-Tender Lymph: Cervical Nodes Benign Musculoskeletal: No Weakness/Pain Integumentary: Skin Intact without Lesion / Mass Psych: Alert & Oriented X3 Result Diagram: 01/30/18 1217 01/30/18 1217 Assessment and Plan Problems: (1) Syncope Status: Acute Assessment & Plan: The syncopal episodes certainly sound like they were vasovagal episodes elicited by the severe pain he was experiencing at the time. No arrhythmia noted on telemetry. Encouraged to drink fluids, orthostatic vitals normal this afternoon. No further presyncopal episodes this afternoon while working with PT. Safe to DC from medical standpoint. (2) Hypothyroidism Status: Chronic Assessment & Plan: Will continue replacement therapy with L-thyroxine. (3) HTN (hypertension) Status: Chronic Assessment & Plan: Will monitor BPs. Have been lower while admitted, resuming benazepril and will hold amlodipine until follow up with PCP. Exam Sepsis Risk: No Definite Risk GAN MAYANK LOVETT DO Jan 31, 2018 15:45
[2018-01-31] MEDS ORDERED: PATCH REMOVAL 1 EA TP SCH (21:00)
[2018-02-01 00:24] VITALS: BP 134/76
[2018-02-01 03:26] VITALS: BP 121/74
[2018-02-01] MEDS: LEVOTHYROXINE SOD 0.088 MG TAB PO SCH (05:52)
[2018-02-01] MEDS ORDERED: LOR5/325 PO (07:30)
[2018-02-01] MEDS ORDERED: DOCU240C84 PO (07:30)
[2018-02-01] MEDS ORDERED: DIA5 PO (07:31)
[2018-02-01 08:09] VITALS: BP 133/82
[2018-02-01] MEDS: amLODIPine BESYL(*) 5 MG TAB PO SCH (09:00)
[2018-02-01] MEDS: BENAZEPRIL HCL 20 MG TAB PO SCH (09:00)
[2018-02-01] MEDS: LIDOCAINE 5% PATCH TP SCH (09:32)
--- NOTE | 2018-02-01 11:37 | Hospitalist Progress Note ---
Subjective Progress Notes Subjective He has no complaints this morning. He reports much improvement with hydration. He wants to go home today. Patient Complains of: Cardiovascular: No: Chest Pain Respiratory: No: Shortness of Breath Physical Exam Vital Signs Date Time Temp Pulse Resp B/P (MAP) Pulse Ox O2 Delivery O2 Flow Rate FiO2 02/01/18 08:09 98.2 70 16 133/82 (99) 95 Nasal Cannula 02/01/18 03:26 1.0 Intake and Output 02/01/18 06:59 Intake Total 2580 ml Output Total 2350 ml Balance 230 ml Intake Oral 2580 ml Output Urine Total 2350 ml # Voids 8 General Appearance: Alert, Awake, No Acute Distress, Afebrile Neuro: No Gross deficits Cardiovascular: Regular Rate and Rhythm Respiratory: No Respiratory Distress, Clear to Auscultation Psych: Alert & Oriented X3, Appropriate Mood & Affect Result Diagram: 01/30/18 1217 01/30/18 1217 Assessment and Plan Problems: (1) Syncope Status: Acute Assessment & Plan: The syncopal episodes certainly sound like they were vasovagal episodes elicited by the severe pain he was experiencing at the time. No arrhythmia noted on telemetry. Encouraged to drink fluids, orthostatic vitals normal this afternoon. No further presyncopal episodes this afternoon while working with PT. Safe to DC from medical standpoint. (2) Hypothyroidism Status: Chronic Assessment & Plan: Will continue replacement therapy with L-thyroxine. (3) HTN (hypertension) Status: Chronic Assessment & Plan: Have been lower while admitted, resuming benazepril and will hold amlodipine until follow up with PCP. Exam Sepsis Risk: No Definite Risk CHERELLE KIRAN Feb 01, 2018 11:37
--- NOTE | 2018-02-05 10:11 | EKG ---
FACILITY: [facility] PATIENT NAME: TIKI MIRELES : [id number] MR: [id number] V: [id number] EXAM DATE: ORDERING PHYSICIAN: ARBEN LIRIANO TECHNOLOGIST: JAQUELINE Reveles Reason : Blood Pressure : / mmHG Vent. Rate : 055 BPM Atrial Rate : 055 BPM P-R Int : 144 ms QRS Dur : 090 ms QT Int : 462 ms P-R-T Axes : 055 015 036 degrees QTc Int : 441 ms Sinus bradycardia Otherwise normal ECG No previous ECGs available Confirmed by Yehuda Kirkland ([id number]) on 02/05/2018 4:52:03 PM Referred By: GISELA Confirmed By:Yehuda Tse
== END 2018-02-01 11:35 | disposition home health service (06) | DRG 536 ==
LOC: ER 12:30 → MED 19:24
PROVIDERS: ADMIT Orthopaedic Surgery; ATTEND Orthopaedic Surgery
DX: S32.592A Other specified fracture of left pubis, initial encounter for closed fracture (principal); S32.10XA Unspecified fracture of sacrum, initial encounter for closed fracture; S32.512A Fracture of superior rim of left pubis, initial encounter for closed fracture; I10 Essential (primary) hypertension; R55 Syncope and collapse; E03.9 Hypothyroidism, unspecified; R00.1 Bradycardia, unspecified; I95.9 Hypotension, unspecified; Z98.1 Arthrodesis status; Z23 Encounter for immunization; W11.XXXA Fall on and from ladder, initial encounter; Y93.89 Activity, other specified; Y92.148 Other place in prison as the place of occurrence of the external cause; Y99.8 Other external cause status
CPT/HCPCS: 36415; 70450; 71260; 72125; 72129; 72132; 72170; 72192; 73564; 74177; 81001; 82040; 82247; 82310; 82374; 82435; 82565; 82947; 84075; 84132; 84155; 84295; 84443; 84450; 84460; 84484; 84520; 85025; 90471; 90715; 93005; 96361; 96374; 96375; 97161; 99285; J2270; J2405; J3010; J7030; Q9967

== ENCOUNTER → 2018-01-30 | Outpatient (CLI) | payer OTHER, MEDICARE ==
[~2018-01-30] MED LIST: AMLO-111 PO; ASPI-1471 PO; BEN20 PO; DIA5 PO; DOCU240C84 PO; FISH OIL 1,2001 CAP PO; GLUC-198 PO; LEVO50TA80 PO; LOR5/325 PO; NAPR220C12 PO
[2018-01-31 08:55] VITALS: BMI 29.7
== END ==
LOC: AMB 12:03
PROVIDERS: ATTEND Nurse Practitioner
DX: M54.5 Low back pain (principal); R10.2 Pelvic and perineal pain; M79.605 Pain in left leg; W11.XXXA Fall on and from ladder, initial encounter
CPT/HCPCS: A0425; A0427